=== PATIENT | male | born 1930 | race African-American/Black ===

== ENCOUNTER 2017-08-05 08:04 | Day surgery (SDC) | payer MEDICARE ==
[2017-07-29 10:31] LABS: HEMATOCRIT 46.1 % (37.9-51.0); HEMOGLOBIN 14.8 g/dL (13.5-17.0); HGB HCT DIFFERENCE -1.7; MEAN CORPUSCULAR HEMOGLOBIN 29.6 pg (27.0-33.4); MEAN CORPUSCULAR HGB CONC 32.1 g/dL (32.0-36.0); MEAN CORPUSCULAR VOLUME 92 fl (80-97); RED BLOOD COUNT 4.99 10^6/uL (4.35-5.55); RED CELL DISTRIBUTION WIDTH 14.3 % (11.5-14.0); WHITE BLOOD COUNT 4.5 10^3/uL (4.0-10.5)
[2017-07-29 11:02] LABS: ANION GAP 13 (5-19); BLOOD UREA NITROGEN 23 mg/dL (7-20); CALCIUM 10.1 mg/dL (8.4-10.2); CARBON DIOXIDE 23 mmol/L (22-30); CHLORIDE 108 mmol/L (98-107); CREATININE RESULT 1.32 mg/dL (0.52-1.25); GLUCOSE 84 mg/dL (75-110); POTASSIUM 4.5 mmol/L (3.6-5.0); SODIUM 144.4 mmol/L (137-145)
--- NOTE | 2017-07-29 20:13 | EKG REPORT ---
SEVERITY:- ABNORMAL ECG - SINUS RHYTHM LVH WITH SECONDARY REPOLARIZATION ABNORMALITY : Confirmed by: Vira Fowler 29-Jul-2017 20:12:03
[~2017-08-05 08:04] MED LIST: ACETAMINOPHEN 325 MG TABLET PO PRN; BUPIVACAINE HCL 0.25 % INJ/PF (2.5 MG/1 ML) 30 ML VIAL ONE; CEFAZOLIN 1 GM/D5W RTU 1 GM/50 ML RTUPB IV PRN; LACTATED RINGERS 1000 ML IV PRN
[2017-08-05] MEDS ORDERED: MIDAZOLAM 2 MG/2 ML INJ ONE (09:11)
[2017-08-05] MEDS ORDERED: FENTANYL CITRATE INJ/PF 250 MCG/5 ML AMPULE ONE (09:11)
[2017-08-05] MEDS ORDERED: EPHEDRINE SULFATE INJ 50 MG/1 ML AMPULE ONE (09:12)
[2017-08-05] MEDS ORDERED: ACETAMINOPHEN 100 ML IV ONE (09:12)
[2017-08-05] MEDS ORDERED: PROPOFOL INJ 200 MG/20 ML VIAL IV ONE (09:12)
[2017-08-05] MEDS ORDERED: FENTANYL CITRATE INJ/PF 100 MCG/2 ML AMPUL ONE (09:13)
[2017-08-05] MEDS ORDERED: PROMETHAZINE HCL INJ 25 MG/1 ML VIAL IV PRN (10:45)
[2017-08-05] MEDS ORDERED: FENTANYL CITRATE INJ/PF 100 MCG/2 ML AMPUL IV PRN ×3 (10:45)
[2017-08-05] MEDS ORDERED: DIPHENHYDRAMINE HCL 50 MG/ML VIAL IV PRN (10:45)
[2017-08-05] MEDS ORDERED: METOPROLOL TARTRATE PF/INJ 5 MG/5 ML SDV IV ONE (10:46)
--- NOTE | 2017-08-05 11:31 | Operative Report ---
Operative Report DATE OF SURGERY: 08/05/17 PREOPERATIVE DIAGNOSIS: Right inguinal hernia POSTOPERATIVE DIAGNOSIS: Right direct inguinal hernia. OPERATION: Right inguinal hernia repair with mesh SURGEON: LUNA FRAUSTO ANESTHESIA: GA TISSUE REMOVED OR ALTERED: Cord lipoma COMPLICATIONS: None ESTIMATED BLOOD LOSS: Minimal INTRAOPERATIVE FINDINGS: Moderate sized direct inguinal hernia. Cord lipoma but no indirect inguinal hernia PROCEDURE: Informed consent was obtained. Patient was brought to the operating room and placed on the operating table in the supine position. After satisfactory induction of general anesthesia patient's right groin was prepped and draped in the usual sterile fashion. A transverse right groin incision was made dissection carried down through the subcutaneous tissue. The external oblique was opened along its fascial fibers thus opening the external inguinal ring. The cord was mobilized at the pubic tubercle. The ilioinguinal nerve was identified and protected during the dissection. Dissection at the anterior aspect of the cord revealed a cord lipoma but no indirect inguinal hernia. The cord lipoma was clamped divided and tied and excised. Patient did have a direct inguinal hernia or herniated tissue was dissected away from the surrounding structures and it was inverted back into the preperitoneal space using mattressing Vicryl sutures. The iliohypogastric nerve would have been in the way of the mesh repair therefore it was taken by clamping dividing and tying. Mesh repair was performed with Covidien pro-twister hand mesh. the sling ends were brought back together in a sling-like configuration thus re-creating the internal inguinal ring and allowing the egress of the cord structures. The mesh laid flat with excellent coverage. A single fixation suture was placed at the pubic tubercle. Hemostasis appeared excellent. The external oblique was closed over the repair and the cord structures using running Vicryl suture. Jessica's fascia was closed with interrupted Vicryl sutures. Skin was closed with subcuticular running Monocryl suture. Marcaine was injected at the operative site. Patient tolerated procedure well with no apparent complications and was taken to the recovery area in stable condition.
[2017-08-05] MEDS ORDERED: OXYCODONE-ACETAMINOPHEN 5-325 MG TABLET PO PRN (11:34)
[2017-08-05] MEDS ORDERED: ONDANSETRON HCL INJ/PF 4 MG/2 ML SDV IV PRN (11:34)
[2017-08-05] MEDS ORDERED: RINGERS SOLUTION,LACTATED 1,000 ML IV PRN (11:34)
--- NOTE | 2017-08-05 11:34 | PDOC DISCHARGE SUMMARY ---
Discharge Summary (SDC) - Discharge Final Diagnosis: Right inguinal hernia Date of Surgery: 08/05/17 Discharge Date: 08/05/17 Condition: Good Treatment or Instructions: Underwent right inguinal hernia repair with mesh. May discharge patient home when met discharge criteria. Follow-up with me in 2 weeks. Stay active but avoid strenuous activity. May shower tomorrow night. Keep Steri-Strips on. Prescriptions: Oxycodone HCl/Acetaminophen [Percocet 5-325 mg Tablet] 1 tab PO ASDIR PRN #25 tablet PRN Reason: Discharge Diet: As Tolerated Discharge Activity: Activity As Tolerated - Stay active but avoid strenuous activity. Report the Following to Your Physician Immediately: Unusual Bleeding, Redness, Drainage-Foul Smelling
[2017-08-05] MEDS ORDERED: LIDOCAINE 2% INJ-PF (20 MG/ML) 10 ML AMPUL ONE (12:24)
[2017-08-05] MEDS ORDERED: SUCCINYLCHOLINE CHLORIDE INJ 200 MG/10 ML VIAL ONE (12:24)
[2017-08-05] MEDS ORDERED: ONDANSETRON HCL INJ/PF 4 MG/2 ML SDV ONE (12:24)
[2017-08-05 14:17] VITALS: BP 185/88
== END 2017-08-05 13:35 | disposition home or self-care (01) ==
LOC: OROUT 08:04
PROVIDERS: ATTEND Surgery
PROC: 0YU50JZ Supplement Right Inguinal Region with Synthetic Substitute, Open Approach (ICD-10-PCS; principal; 2017-08-05 10:30)
DX: K40.90 Unilateral inguinal hernia, without obstruction or gangrene, not specified as recurrent (principal); D17.6 Benign lipomatous neoplasm of spermatic cord; I10 Essential (primary) hypertension; Z87.891 Personal history of nicotine dependence; Z79.899 Other long term (current) drug therapy
CPT/HCPCS: 93005; 36415; 85027; 80048; 88302 ×2; 93010; 49505; C1781; J2250; J0690; J3010; J3490 ×2; J0330; J2405; J2704; J0131; 830

== ENCOUNTER → 2018-02-26 | Outpatient (CLI) | payer MEDICARE ==
[2018-02-26 12:57] LABS: ALANINE AMINOTRANSFERASE 25 U/L (21-72); ALBUMIN 4.3 g/dL (3.5-5.0); ALKALINE PHOSPHATASE 81 U/L (38-126); ANION GAP 12 (5-19); ASPARTATE AMINO TRANSFERASE 30 U/L (17-59); BILIRUBIN,DIRECT 0.5 mg/dL (0.0-0.4); BILIRUBIN,TOTAL 1.1 mg/dL (0.2-1.3); BLOOD UREA NITROGEN 16 mg/dL (7-20); CALCIUM 9.8 mg/dL (8.4-10.2); CARBON DIOXIDE 24 mmol/L (22-30); CHLORIDE 107 mmol/L (98-107); GLUCOSE 79 mg/dL (75-110); POTASSIUM 4.6 mmol/L (3.6-5.0); TOTAL PROTEIN 7.9 g/dL (6.3-8.2)
== END ==
LOC: OD 11:18
PROVIDERS: ATTEND Family Medicine
DX: N18.3 Chronic kidney disease, stage 3 (moderate) (principal)
CPT/HCPCS: 36415; 80053

== ENCOUNTER 2018-02-28 13:29 | Emergency (ER) | payer MEDICARE ==
[2018-02-28] MEDS ORDERED: AMLODIPINE BESYLATE 5 MG TABLET PO ONE (13:58)
--- NOTE | 2018-02-28 14:01 | ER Document Report ---
ED Medical Screen (RME) - General TRAVEL OUTSIDE OF THE [place] IN LAST 30 DAYS: No <EDWARDO RENNER - Last Filed: 02/28/18 13:59> <YAMILKA ESTES - Last Filed: 02/28/18 16:53> - General Chief Complaint: Blood Pressure Problem Stated Complaint: BLOOD PRESSURE ISSUES Time Seen by Provider: 02/28/18 13:48 Notes: 87-year-old hypertensive male patient has been on lisinopril 20 mg daily which he takes at 8:00 in the morning. He saw Dr. Harvey on for the first time and his blood pressure was over 200. He was instructed to take lisinopril 40 mg each morning which she has done on Friday morning and today. He was at a pharmacy this afternoon and his blood pressure was 215/100 and the pharmacist told him that he thought he was dehydrated and should come to the emergency room. Patient states he feels like he always feels. Review of his records shows that his blood pressure is usually high, most recently in July was 193/95. He did have a Chem-12 done 2 days ago and his retina was slightly higher than what it had been last year. Since he is now on the maximum recommended dose of lisinopril, I will give him a 5 mg dose of Norvasc and check some baseline lab work. I have greeted and performed a rapid initial assessment of this patient. A comprehensive ED assessment and evaluation of the patient, analysis of test results and completion of the medical decision making process will be conducted by additional ED providers. (EDWARDO RENNER) - Related Data Allergies/Adverse Reactions: No Known Allergies Allergy (Verified 02/28/18 13:33) Past Medical History - Social History Chew tobacco use (# tins/day): No Frequency of alcohol use: None Drug Abuse: None - Past Medical History Cardiac Medical History: Reports: Hx Hypertension Denies: Hx Coronary Artery Disease, Hx Heart Attack Pulmonary Medical History: Denies: Hx Asthma, Hx Bronchitis, Hx COPD, Hx Pneumonia Neurological Medical History: Denies: Hx Cerebrovascular Accident, Hx Seizures Renal/ Medical History: Denies: Hx Peritoneal Dialysis Musculoskeltal Medical History: Reports Hx Arthritis - gout, Reports Hx Gout Past Surgical History: Reports: Hx Genitourinary Surgery - Vasecotmy, Hx Orthopedic Surgery - Lt rotator cuff repair - Immunizations Hx Diphtheria, Pertussis, Tetanus Vaccination: Yes <EDWARDO RENNER - Last Filed: 02/28/18 13:59> - Vital signs Vitals: Temp Pulse Resp BP Pulse Ox 97.5 F 59 L 16 206/84 H 99 02/28/18 13:40 02/28/18 13:40 02/28/18 13:40 02/28/18 13:40 02/28/18 13:40 Course - Laboratory Result Diagrams: 02/28/18 14:10 02/28/18 14:10 <YAMILKA ESTES - Last Filed: 02/28/18 16:53> - Vital Signs Vital signs: Temp Pulse Resp BP Pulse Ox 97.5 F 59 L 18 190/86 H 100 02/28/18 13:40 02/28/18 13:40 02/28/18 16:31 02/28/18 16:31 02/28/18 16:24 - Laboratory Laboratory results interpreted by me: 02/28/18 02/28/18 02/28/18 14:10 14:10 15:15 RDW 14.7 H Sodium 146.8 H Chloride 109 H Creatinine 1.34 H Est GFR (Non-Af Amer) 50 L Total Protein 8.5 H Urine Protein 100 H Urine Blood SMALL H Doctor's Discharge <EDWARDO RENNER - Last Filed: 02/28/18 13:59> <YAMILKA ESTES - Last Filed: 02/28/18 16:53> - Discharge Clinical Impression: High blood pressure Qualifiers: Hypertension type: unspecified Qualified Code(s): I10 - Essential (primary) hypertension Condition: Stable Disposition: HOME, SELF-CARE Instructions: High Blood Pressure, Requiring Treatment ([facility]) Additional Instructions: *You have been evaluated for high blood pressure *Take your medication as prescribed *Follow up with Dr. Mccain Friday *Return to ED for worsening condition, changes, needs, concerns Forms: Elevated Blood Pressure Referrals: AYANA HARVEY MD [Primary Care Provider] - 03/02/18
[2018-02-28 14:28] LABS: ABSOLUTE EOSINOPHILS # (AUTO) 0.1 10^3/uL (0.0-0.6); ABSOLUTE LYMPHOCYTES (AUTO) 0.9 10^3/uL (0.5-4.7); ABSOLUTE MONOCYTES (AUTO) 0.4 10^3/uL (0.1-1.4); ABSOLUTE NEUT (AUTO) 3.4 10^3/uL (1.7-8.2); BASOPHILS % (AUTO) 0.6 % (0-2); EOSINOPHILS % (AUTO) 2.7 % (0-6); HEMATOCRIT 46.5 % (37.9-51.0); HEMOGLOBIN 15.5 g/dL (13.5-17.0); LYMPHOCYTES % (AUTO) 19.2 % (13-45); MEAN CORPUSCULAR HEMOGLOBIN 29.9 pg (27.0-33.4); MEAN CORPUSCULAR HGB CONC 33.3 g/dL (32.0-36.0); MEAN CORPUSCULAR VOLUME 90 fl (80-97); MONOCYTES % (AUTO) 8.7 % (3-13); PLATELET COUNT 254 10^3/uL (150-450); RED BLOOD COUNT 5.18 10^6/uL (4.35-5.55); RED CELL DISTRIBUTION WIDTH 14.7 % (11.5-14.0); SEGMENTED NEUTROPHILS % (AUTO) 68.8 % (42-78); TOTAL CELLS COUNTED % (AUTO) 100 %; WHITE BLOOD COUNT 4.9 10^3/uL (4.0-10.5)
[2018-02-28 14:38] LABS: ALANINE AMINOTRANSFERASE 25 U/L (21-72); ALBUMIN 4.9 g/dL (3.5-5.0); ALKALINE PHOSPHATASE 83 U/L (38-126); ANION GAP 14 (5-19); ASPARTATE AMINO TRANSFERASE 32 U/L (17-59); BILIRUBIN,DIRECT 0.3 mg/dL (0.0-0.4); BILIRUBIN,TOTAL 0.8 mg/dL (0.2-1.3); BLOOD UREA NITROGEN 18 mg/dL (7-20); CALCIUM 10.2 mg/dL (8.4-10.2); CARBON DIOXIDE 24 mmol/L (22-30); CHLORIDE 109 mmol/L (98-107); GLUCOSE 80 mg/dL (75-110); POTASSIUM 4.2 mmol/L (3.6-5.0); SODIUM 146.8 mmol/L (137-145); TOTAL PROTEIN 8.5 g/dL (6.3-8.2)
[2018-02-28 15:55] LABS: APPEARANCE,URINE CLEAR; BILIRUBIN,URINE NEGATIVE (NEGATIVE); COLOR,URINE YELLOW; GLUCOSE, URINE NEGATIVE (NEGATIVE); KETONES,URINE NEGATIVE (NEGATIVE); LEUKOCYTE ESTERASE,URINE NEGATIVE (NEGATIVE); NITRITE,URINE NEGATIVE (NEGATIVE); PROTEIN,URINE 100 mg/dL (NEGATIVE); URINE SPECIFIC GRAVITY 1.017; UROBILINOGEN,URINE NEGATIVE mg/dL (<2.0)
[2018-02-28 17:11] VITALS: BP 198/95
--- NOTE | 2018-02-28 17:21 | ER Document Report ---
ED General - General Chief Complaint: Blood Pressure Problem Stated Complaint: BLOOD PRESSURE ISSUES Time Seen by Provider: 02/28/18 13:48 Mode of Arrival: Ambulatory Notes: patient presents to the ED with c/o high blood pressure. Patient reports he saw Dr. Harvey on for the first time and his blood pressure was over 200. He was instructed to double his lisinopril, 40 mg each morning which he did on Friday morning and today. He was at a pharmacy this afternoon and his blood pressure was 215/100 and the pharmacist told him that he thought he was dehydrated and should come to the emergency room. Patient denies headache, shortness of breath. Denies chest pain. Patient is alert and oriented reports he feels fine. Reports he is eating drinking as normal. Patient also reports that he just started smoking again. He reports his 5 months ago and 2 months ago he started smoking again. TRAVEL OUTSIDE OF THE [place] IN LAST 30 DAYS: No - HPI Onset: Other Onset/Duration: Persistent Quality of pain: No pain Severity: None Pain Level: Denies Associated symptoms: None Exacerbated by: Denies Relieved by: Denies Similar symptoms previously: Yes Recently seen / treated by doctor: Yes - Related Data Allergies/Adverse Reactions: No Known Allergies Allergy (Verified 02/28/18 13:33) Past Medical History - General Information source: Patient, Relative - daughter - Social History Smoking Status: Current Every Day Smoker Cigarette use (# per day): Yes Chew tobacco use (# tins/day): No Frequency of alcohol use: None Drug Abuse: None Lives with: Alone Family History: Reviewed & Not Pertinent Patient has suicidal ideation: No Patient has homicidal ideation: No - Past Medical History Cardiac Medical History: Reports: Hx Hypertension Denies: Hx Coronary Artery Disease, Hx Heart Attack Pulmonary Medical History: Denies: Hx Asthma, Hx Bronchitis, Hx COPD, Hx Pneumonia Neurological Medical History: Denies: Hx Cerebrovascular Accident, Hx Seizures Renal/ Medical History: Denies: Hx Peritoneal Dialysis Musculoskeltal Medical History: Reports Hx Arthritis - gout, Reports Hx Gout Past Surgical History: Reports: Hx Genitourinary Surgery - Vasecotmy, Hx Orthopedic Surgery - Lt rotator cuff repair - Immunizations Hx Diphtheria, Pertussis, Tetanus Vaccination: Yes Hx Pneumococcal Vaccination: 07/23/13 Review of Systems - Review of Systems Notes: Review HPI for review of systems., All other systems negative Physical Exam - Vital signs Vitals: Temp Pulse Resp BP Pulse Ox 97.5 F 59 L 16 206/84 H 99 02/28/18 13:40 02/28/18 13:40 02/28/18 13:40 02/28/18 13:40 02/28/18 13:40 - Notes Notes: PHYSICAL EXAMINATION: GENERAL: Well-appearing and in no acute distress HEAD: Atraumatic, normocephalic. EYES: Pupils equal round extraocular movements intact, ENT: nares patent, oropharynx clear without exudates. Moist mucous membranes. NECK: Normal range of motion, supple without lymphadenopathy LUNGS: CTAB and equal. No wheezes rales or rhonchi. HEART: Regular rate and rhythm without murmurs ABDOMEN: Soft, no tenderness. No guarding, no rebound EXTREMITIES: Normal range of motion, no pitting edema. No cyanosis. NEUROLOGICAL: Cranial nerves grossly intact. Normal sensory/motor exams. PSYCH: Normal mood, normal affect. A&O X3 answers all questions appropriately SKIN: Warm, Dry, normal turgor, no rashes or lesions noted Course - Re-evaluation Re-evalutation: 02/28/18 17:30 Labs reviewed sodium 146.8. creatinine 1.34 better from 02/26. Patient denies all symptoms such as chest pain shortness of breath headache confusion. Discussed patient with dr de luna. he agrees patient safe to be discharged. pt is ready to go home and eat fried chicken wings/mashed potatoes/gravy. Discussed sodium effects on blood pressure, also discussed importance of quitting smoking , effects on BP. discussed s/s stroke with daughter, instructed on importance of fu with dr you friday. Family and patient verbalized understanding. Family /patient feels safe to go home. - Vital Signs Vital signs: Temp Pulse Resp BP Pulse Ox 97.4 F 59 L 15 198/95 H 100 02/28/18 17:01 02/28/18 13:40 02/28/18 17:01 02/28/18 17:01 02/28/18 17:01 - Laboratory Result Diagrams: 02/28/18 14:10 02/28/18 14:10 Laboratory results interpreted by me: 02/28/18 02/28/18 02/28/18 14:10 14:10 15:15 RDW 14.7 H Sodium 146.8 H Chloride 109 H Creatinine 1.34 H Est GFR (Non-Af Amer) 50 L Total Protein 8.5 H Urine Protein 100 H Urine Blood SMALL H Discharge - Discharge Clinical Impression: High blood pressure Qualifiers: Hypertension type: unspecified Qualified Code(s): I10 - Essential (primary) hypertension Condition: Stable Disposition: HOME, SELF-CARE Instructions: High Blood Pressure, Requiring Treatment ([facility]) Additional Instructions: *You have been evaluated for high blood pressure *Take your medication as prescribed *Follow up with Dr. Mccain Friday *Return to ED for worsening condition, changes, needs, concerns Forms: Elevated Blood Pressure Referrals: AYANA HARVEY MD [Primary Care Provider] - 03/02/18
== END 2018-02-28 17:11 | disposition home or self-care (01) ==
LOC: ER 13:29
DX: I10 Essential (primary) hypertension (principal); F17.210 Nicotine dependence, cigarettes, uncomplicated
CPT/HCPCS: 99283; 36415; 85025; 80053; 81001; A9270

== ENCOUNTER → 2018-04-29 | Outpatient (CLI) | payer MEDICARE ==
[2018-04-29 08:37] LABS: ABSOLUTE EOSINOPHILS # (AUTO) 0.3 10^3/uL (0.0-0.6); ABSOLUTE LYMPHOCYTES (AUTO) 0.9 10^3/uL (0.5-4.7); ABSOLUTE MONOCYTES (AUTO) 0.5 10^3/uL (0.1-1.4); ABSOLUTE NEUT (AUTO) 3.6 10^3/uL (1.7-8.2); BASOPHILS % (AUTO) 0.6 % (0-2); EOSINOPHILS % (AUTO) 4.7 % (0-6); HEMATOCRIT 42.8 % (37.9-51.0); HEMOGLOBIN 14.3 g/dL (13.5-17.0); LYMPHOCYTES % (AUTO) 17.8 % (13-45); MEAN CORPUSCULAR HEMOGLOBIN 30.2 pg (27.0-33.4); MEAN CORPUSCULAR HGB CONC 33.4 g/dL (32.0-36.0); MEAN CORPUSCULAR VOLUME 90 fl (80-97); MONOCYTES % (AUTO) 9.6 % (3-13); PLATELET COUNT 242 10^3/uL (150-450); RED BLOOD COUNT 4.74 10^6/uL (4.35-5.55); RED CELL DISTRIBUTION WIDTH 14.7 % (11.5-14.0); SEGMENTED NEUTROPHILS % (AUTO) 67.3 % (42-78); TOTAL CELLS COUNTED % (AUTO) 100 %; WHITE BLOOD COUNT 5.3 10^3/uL (4.0-10.5)
[2018-04-29 08:53] LABS: ALANINE AMINOTRANSFERASE 22 U/L (21-72); ALBUMIN 4.2 g/dL (3.5-5.0); ALKALINE PHOSPHATASE 72 U/L (38-126); ANION GAP 11 (5-19); ASPARTATE AMINO TRANSFERASE 28 U/L (17-59); BILIRUBIN,DIRECT 0.2 mg/dL (0.0-0.4); BILIRUBIN,TOTAL 0.7 mg/dL (0.2-1.3); BLOOD UREA NITROGEN 17 mg/dL (7-20); CALCIUM 9.9 mg/dL (8.4-10.2); CARBON DIOXIDE 26 mmol/L (22-30); CHLORIDE 110 mmol/L (98-107); CHOLESTEROL 203.73 mg/dL (0-200); GLUCOSE 84 mg/dL (75-110); POTASSIUM 4.8 mmol/L (3.6-5.0); SODIUM 146.7 mmol/L (137-145); TOTAL PROTEIN 7.6 g/dL (6.3-8.2); TRIGLYCERIDES 46 mg/dL (<150)
[2018-04-29 09:04] LABS: DIRECT LDL 93 mg/dL (<100)
== END ==
LOC: OD 07:58
PROVIDERS: ATTEND Internal Medicine
DX: I12.9 Hypertensive chronic kidney disease with stage 1 through stage 4 chronic kidney disease, or unspecified chronic kidney disease (principal); N18.3 Chronic kidney disease, stage 3 (moderate); E78.5 Hyperlipidemia, unspecified; R35.1 Nocturia
CPT/HCPCS: 36415; 80053; 80061; 84443; 85025

== ENCOUNTER → 2019-06-29 | Outpatient (CLI) | payer MEDICARE ==
[2019-06-29 09:35] LABS: ABSOLUTE EOSINOPHILS # (AUTO) 0.2 10^3/uL (0.0-0.6); ABSOLUTE LYMPHOCYTES (AUTO) 0.7 10^3/uL (0.5-4.7); ABSOLUTE MONOCYTES (AUTO) 0.4 10^3/uL (0.1-1.4); ABSOLUTE NEUT (AUTO) 3.5 10^3/uL (1.7-8.2); BASOPHILS % (AUTO) 0.6 % (0-2); EOSINOPHILS % (AUTO) 4.4 % (0-6); HEMATOCRIT 44.2 % (37.9-51.0); HEMOGLOBIN 14.4 g/dL (13.5-17.0); LYMPHOCYTES % (AUTO) 13.8 % (13-45); MEAN CORPUSCULAR HEMOGLOBIN 29.6 pg (27.0-33.4); MEAN CORPUSCULAR HGB CONC 32.6 g/dL (32.0-36.0); MEAN CORPUSCULAR VOLUME 91 fl (80-97); MONOCYTES % (AUTO) 9.2 % (3-13); PLATELET COUNT 262 10^3/uL (150-450); RED BLOOD COUNT 4.86 10^6/uL (4.35-5.55); RED CELL DISTRIBUTION WIDTH 14.6 % (11.5-14.0); TOTAL CELLS COUNTED % (AUTO) 100 %; WHITE BLOOD COUNT 4.9 10^3/uL (4.0-10.5)
[2019-06-29 09:52] LABS: ALBUMIN 4.2 g/dL (3.5-5.0); ALKALINE PHOSPHATASE 77 U/L (38-126); ANION GAP 6 (5-19); ASPARTATE AMINO TRANSFERASE 24 U/L (17-59); BILIRUBIN,DIRECT 0.2 mg/dL (0.0-0.4); BILIRUBIN,TOTAL 0.6 mg/dL (0.2-1.3); BLOOD UREA NITROGEN 22 mg/dL (7-20); CALCIUM 9.6 mg/dL (8.4-10.2); CARBON DIOXIDE 28 mmol/L (22-30); CHLORIDE 109 mmol/L (98-107); CHOLESTEROL 180.08 mg/dL (0-200); GLUCOSE 84 mg/dL (75-110); TOTAL PROTEIN 7.3 g/dL (6.3-8.2); TRIGLYCERIDES 63 mg/dL (<150)
[2019-06-29 10:03] LABS: DIRECT LDL 104 mg/dL (<100)
== END ==
LOC: OD 08:24
PROVIDERS: ATTEND Internal Medicine
DX: I10 Essential (primary) hypertension (principal); M10.9 Gout, unspecified; E78.5 Hyperlipidemia, unspecified; N18.3 Chronic kidney disease, stage 3 (moderate)
CPT/HCPCS: 36415; 80053; 80061; 84443; 85025